=== PATIENT | female | born 1975 | race Caucasian/White ===

== ENCOUNTER 2016-12-19 18:25 | Emergency (ER) | payer OTHER | END 2016-12-19 19:40 | disposition home or self-care (01) | LOC: FER 18:25 | DX: M54.5 Low back pain (principal); G89.29 Other chronic pain; Z87.442 Personal history of urinary calculi; Z88.0 Allergy status to penicillin; Z88.6 Allergy status to analgesic agent; X50.0XXA Overexertion from strenuous movement or load, initial encounter | CPT/HCPCS: J1030 ==